=== PATIENT | male | born 1940 | race Caucasian/White ===

== ENCOUNTER 2019-08-30 13:36 | Emergency (ER) | payer BC ==
[~2019-08-30] VITALS: Ht 167.6 cm; Wt 72.6 kg
[2019-08-30] MEDS ORDERED: COZAAR 25 MG TA25 M1 (13:50)
[2019-08-30] MEDS ORDERED: SIMVASTATIN80 MG PO (13:51)
[2019-08-30] MEDS ORDERED: HYDRALAZINE 2525 MG PO (13:51)
[2019-08-30] MEDS ORDERED: THYROXINE (13:51)
[2019-08-30] MEDS ORDERED: PROSCAR 5MG TABL5 MG PO (13:51)
[2019-08-30] MEDS ORDERED: OMEPRAZOLE 20 M20 M1 PO (13:52)
[2019-08-30] MEDS ORDERED: ZANTAC 150MG T150 M1 PO (13:52)
[2019-08-30] MEDS ORDERED: VITAMIN D3400 UNI2 PO (13:52)
[2019-08-30] MEDS ORDERED: NORCO 5-325 TA1 EAC1 PO (14:27)
[2019-08-30] MEDS ORDERED: PREDNISONE 20 M20 M1 PO (14:27)
[2019-08-30] MEDS ORDERED: KEFLEX500 M1 PO (14:40)
[2019-08-30 14:45] VITALS: BP 152/81
== END 2019-08-30 14:45 | disposition home or self-care (01) ==
LOC: M.ERS 13:36
DX: M10.9 Gout, unspecified (principal); I10 Essential (primary) hypertension; E78.5 Hyperlipidemia, unspecified; Z98.890 Other specified postprocedural states

== ENCOUNTER → 2019-11-18 | Outpatient (CLI) | payer BC ==
[~2019-11-18] MED LIST: COZAAR 25 MG TA25 M1; HYDRALAZINE 2525 MG PO; KEFLEX500 M1 PO; NORCO 5-325 TA1 EAC1 PO; OMEPRAZOLE 20 M20 M1 PO; PREDNISONE 20 M20 M1 PO; PROSCAR 5MG TABL5 MG PO; SIMVASTATIN80 MG PO; THYROXINE; VITAMIN D3400 UNI2 PO; ZANTAC 150MG T150 M1 PO
== END ==
LOC: M.ULTRA 11:18
DX: N62 Hypertrophy of breast (principal)

== ENCOUNTER 2020-05-11 05:32 | Emergency (ER) | payer BC ==
[~2020-05-11] VITALS: Ht 167.6 cm; Wt 72.6 kg
[2020-05-11] MEDS ORDERED: FAMOTIDINE 40 M40 M1 PO (05:51)
[2020-05-11] MEDS ORDERED: LEVOTHYROXINE50 MCG PO (05:51)
[2020-05-11 05:54] LABS: ABSOLUTE BASOPHILS 0.1 thou/uL (0.0-0.2); ABSOLUTE EOSINOPHILS 0.3 thou/uL (0.0-0.7); ABSOLUTE LYMPHOCYTES 3.2 thou/uL (0.8-5.3); ABSOLUTE MONOCYTES 1.1 thou/uL (0.0-1.2); ABSOLUTE NEUTROPHILS 4.8 thou/uL (1.6-8.1); BASOPHILS 1.1 %; HEMATOCRIT 39.5 % (42.0-52.0); HEMOGLOBIN 13.6 gm/dL (14.0-18.0); LYMPHOCYTES 34.1 %; MCH 30.1 pg (26.0-34.0); MCHC 34.4 g/dL (28.0-37.0); MCV 87.4 fL (80.0-100.0); MONOCYTES 11.3 %; MPV 8.6 fl. (7.2-11.1); NUCLEATED RBCS 0 /100WBC; PLATELET COUNT* 257 thou/uL (150-400); POLYS 50.5 %; RBC 4.52 mil/uL (4.50-6.00); RDW-CV 14.3 % (10.5-14.5); WBC 9.5 thou/uL (4.0-11.0)
[2020-05-11] MEDS ORDERED: ZOCOR 20 MG TAB20 M1 PO (05:55)
[2020-05-11] MEDS ORDERED: FLOMAX0.4 MG PO (05:55)
[2020-05-11] MEDS ORDERED: COZAAR 25 MG TA25 M1 PO (05:56)
[2020-05-11] MEDS ORDERED: PROSCAR 5MG TABL5 MG PO (05:57)
[2020-05-11] MEDS ORDERED: VITAMIN D PO (05:58)
[2020-05-11] MEDS ORDERED: HYDRALAZINE 2525 MG PO (05:59)
[2020-05-11 06:44] LABS: URINE BILIRUBIN NEGATIVE (Negative); URINE BLOOD NEGATIVE (Negative); URINE CLARITY CLEAR; URINE COLOR YELLOW; URINE GLUCOSE-RANDOM NEGATIVE (Negative); URINE KETONES NEGATIVE (Negative); URINE LEUKOCYTES-REFLEX NEGATIVE (Negative); URINE NITRITE-REFLEX NEGATIVE (Negative); URINE PROTEIN NEGATIVE (Negative); URINE SPECIFIC GRAVITY 1.015 (1.005-1.030); URINE UROBILINOGEN 0.2 E.U./dl (0.2-1.0)
[2020-05-11 06:47] LABS: ALBUMIN 3.3 g/dL (3.4-5.0); CALCIUM 7.7 mg/dL (8.5-10.1); CREATININE 2.3 mg/dL (0.6-1.3); TOTAL BILIRUBIN 0.3 mg/dL (<0.1-1.0); TOTAL PROTEIN 6.7 g/dL (6.4-8.2)
[2020-05-11] MEDS ORDERED: NORCO 5-325 TA1 EAC2 PO (07:28)
[2020-05-11] MEDS ORDERED: DOXYCYCLINE 10100 M2 PO (07:28)
[2020-05-11 07:41] VITALS: BP 160/65
--- NOTE | 2020-05-11 12:17 | EKG ---
[place] [address] ELECTROCARDIOGRAM REPORT Name: BLAYNE THACKER Room: [facility]#: [id number] Admission: 05/11/20 Attend Phys: Discharge: 05/11/20 Date of : 40 Date of Service: 05/11/20 0541 Report #: [id number] THIS REPORT FOR: //name// [facility] ED Test Date: 2020-05-11 Test Time: 05:41:05 Pat Name: BLAYNE THACKER Department: Room: Gender: Vp Of Marketing: : 1940 Requested By: Alfredo Santacruz Order Number: [id number] [id number] MD: Orlando Simpson Measurements Intervals [place] Rate: 63 P: 27 MS: 166 QRS: -19 QRSD: 108 T: 4 QT: 422 QTc: 433 Interpretive Statements Sinus rhythm Inferior infarct, old No previous ECG available for comparison Electronically Signed On 05-11-2020 12:17:51 CDT by Orlando Simpson [email or web address] <ELECTRONICALLY SIGNED> By: Orlando Simpson MD, [facility] 05/11/20 1217 0541 0541 Orlando Simpson MD, FACC /EPI
== END 2020-05-11 07:42 | disposition home or self-care (01) ==
LOC: M.ERS 05:32
PROVIDERS: Emergency Medicine
DX: R51 Headache (principal); R10.30 Lower abdominal pain, unspecified; I12.9 Hypertensive chronic kidney disease with stage 1 through stage 4 chronic kidney disease, or unspecified chronic kidney disease; N18.3 Chronic kidney disease, stage 3 (moderate); E78.5 Hyperlipidemia, unspecified; Z88.0 Allergy status to penicillin

== ENCOUNTER → 2020-12-04 | Outpatient (CLI) | payer BC ==
[~2020-12-04] MED LIST changes: +COZAAR 25 MG TA25 M1 PO; +DOXYCYCLINE 10100 M2 PO; +FAMOTIDINE 40 M40 M1 PO; +FLOMAX0.4 MG PO; +LEVOTHYROXINE50 MCG PO; +NORCO 5-325 TA1 EAC2 PO; +VITAMIN D PO; +ZOCOR 20 MG TAB20 M1 PO
== END ==
LOC: M.ULTRA 12:37
PROVIDERS: ATTEND Family Medicine
DX: I73.9 Peripheral vascular disease, unspecified (principal)